=== PATIENT | male | born 1950 | race Two or more races ===

== ENCOUNTER 2017-06-20 21:20 | Inpatient (IN) | payer OTHER ==
[~2017-06-20] VITALS: Ht 165.1 cm; Wt 77.1 kg
[~2017-06-20 21:20] MED LIST: ADVAIR 2501 DISK W/1; ALBUTEROL2.5 MG/3 M; AMLODIPINE BES2.5 MG; ATACAND32 MG PO; BUDESONIDE0.5 MG/2 M; CITALOPRAM HBR20 MG; CLONAZEPAM2 MG; LOTREL 10-20 MG1 CAP; RESTORIL30 M1; TAMSULOSIN HCL0.4 MG
[2017-06-28] MEDS ORDERED: MUCINEX600 MG PO (09:35)
[2017-06-28] MEDS ORDERED: PROAIR HFA8.5 GM IH (09:37)
[2017-06-28] MEDS ORDERED: SYMBICORT 16010.2 GM IH (09:38)
== END 2017-06-28 12:25 | disposition home or self-care (01) | DRG 190 ==
LOC: ER 21:20 → SEC-K 06-21 14:39 → MEDI 06-21 17:03
PROC: 3E0F7GC Introduction of Other Therapeutic Substance into Respiratory Tract, Via Natural or Artificial Opening (ICD-10-PCS; principal; 2017-06-21)
PROC: 4A033R1 Measurement of Arterial Saturation, Peripheral, Percutaneous Approach (ICD-10-PCS; 2017-06-21)
PROC: BW24ZZZ Computerized Tomography (CT Scan) of Chest and Abdomen (ICD-10-PCS; 2017-06-21)
PROC: BB24ZZZ Computerized Tomography (CT Scan) of Bilateral Lungs (ICD-10-PCS; 2017-06-25)
DX: J44.1 Chronic obstructive pulmonary disease with (acute) exacerbation (principal); J15.7 Pneumonia due to Mycoplasma pneumoniae; A37.91 Whooping cough, unspecified species with pneumonia; J45.31 Mild persistent asthma with (acute) exacerbation; I10 Essential (primary) hypertension; F17.210 Nicotine dependence, cigarettes, uncomplicated; R09.02 Hypoxemia

== ENCOUNTER 2018-03-04 11:08 | Outpatient (CLI) | payer OTHER ==
[~2018-03-04 11:08] MED LIST changes: +MUCINEX600 MG PO; +PROAIR HFA8.5 GM IH; +SYMBICORT 16010.2 GM IH
== END 2018-03-04 11:12 | disposition home or self-care (01) ==
LOC: RAD 501 11:08
DX: M54.5 Low back pain (principal)

== ENCOUNTER 2018-04-28 11:23 | Outpatient (CLI) | payer OTHER | END 2018-04-28 11:38 | disposition home or self-care (01) | LOC: RAD 501 11:23 | DX: M54.5 Low back pain (principal); M25.551 Pain in right hip; M25.552 Pain in left hip ==

== ENCOUNTER 2018-08-21 11:21 | Outpatient (CLI) | payer OTHER | END 2018-08-21 11:46 | disposition home or self-care (01) | LOC: LAB 11:21 | DX: N20.0 Calculus of kidney (principal); Z51.81 Encounter for therapeutic drug level monitoring ==

== ENCOUNTER 2018-08-21 11:22 | Outpatient (CLI) | payer OTHER | END 2018-08-21 16:30 | disposition home or self-care (01) | LOC: MRI 11:22 | DX: I65.1 Occlusion and stenosis of basilar artery (principal); I72.9 Aneurysm of unspecified site; I65.29 Occlusion and stenosis of unspecified carotid artery; Q28.2 Arteriovenous malformation of cerebral vessels; R41.3 Other amnesia; G91.2 (Idiopathic) normal pressure hydrocephalus | CPT/HCPCS: 70553; A9579; 70544 ==

== ENCOUNTER 2019-01-01 08:31 | Outpatient (CLI) | payer OTHER | END 2019-01-01 08:43 | disposition home or self-care (01) | LOC: NUCLEAR 08:31 | DX: I70.213 Atherosclerosis of native arteries of extremities with intermittent claudication, bilateral legs (principal) ==

== ENCOUNTER 2019-03-23 09:32 | Outpatient (CLI) | payer OTHER | END 2019-03-23 10:00 | disposition home or self-care (01) | LOC: RAD 09:32 | DX: M25.561 Pain in right knee (principal); M25.562 Pain in left knee; M25.551 Pain in right hip; M25.552 Pain in left hip ==

== ENCOUNTER → 2019-04-01 | Outpatient (CLI) | payer OTHER | END | disposition home or self-care (01) | LOC: RAD 08:32 | DX: R07.89 Other chest pain (principal) ==

== ENCOUNTER → 2025-01-30 | Emergency (ER) | payer OTHER ==
[~2025-01-30] VITALS: Ht 167.6 cm; Wt 64.4 kg
== END | disposition home or self-care (01) ==
LOC: ER 09:53
DX: S20.212A Contusion of left front wall of thorax, initial encounter (principal); W08.XXXA Fall from other furniture, initial encounter; Y93.89 Activity, other specified; Y92.89 Other specified places as the place of occurrence of the external cause; Y99.9 Unspecified external cause status

== ENCOUNTER 2025-02-05 11:09 | Emergency (ER) | payer OTHER ==
[~2025-02-05] VITALS: Ht 170.2 cm; Wt 68.9 kg
[2025-02-05 13:31] LABS: ALT/SGPT 19.0 U/L (12-78); AST/SGOT 18.0 U/L (15-37); BILIRUBIN TOTAL 0.94 mg/dL (0.3-1.2); BUN CREA RATIO 15.0 (7.0-25.0); CREATININE SERUM 1.49 mg/dL (0.70-1.30); GFR 46.36; GLOBULINA 3.3 G/DL (2.4-3.5); GLUCOSE FASTING 157.0 mg/dL (65-100); OSMOLALITY SERUM 290.0 MOSM/KG (275-295)
[2025-02-05 13:32] LABS: BASO % 1.1 % (0.1-1.2); EOS # 0.09 (0.04-0.54); EOS % 1.1 % (0.7-7.0); LYMPH # 1.04 (1.18-3.74); LYMPH % 12.3 % (19.3-53.1); MEAN PLATELET VOLUME 10.00 fl (9.4-12.4); MONO # 0.45 (0.24-0.82); MONO % 5.3 % (4.7-12.5); NEUT # 6.74 (1.56-6.13); NEUT % 79.8 % (34.0-71.1); RED CELL DISTRIBUTION WIDTH 14.1 % (11.6-14.4)
== END 2025-02-05 14:32 | disposition home or self-care (01) ==
LOC: ER 11:09
PROVIDERS: General Practice
DX: R55 Syncope and collapse (principal); I10 Essential (primary) hypertension; E11.9 Type 2 diabetes mellitus without complications

== ENCOUNTER → 2025-05-06 | Emergency (ER) | payer OTHER | END | disposition left against medical advice (07) | LOC: ER 18:20 | DX: Z53.21 Procedure and treatment not carried out due to patient leaving prior to being seen by health care provider (principal) ==